=== PATIENT | female | born 1990 | race African-American/Black ===

== ENCOUNTER 2019-01-05 20:06 | Emergency (ER) | payer OTHER, MEDICAID ==
[~2019-01-05] VITALS: Ht 167.6 cm; Wt 90.7 kg
[2019-01-05 20:40] VITALS: BP 147/76
[2019-01-05] MEDS ORDERED: AMOXICILLIN 250 MG CAPSULE. PO ONE (21:30)
[2019-01-05] MEDS ORDERED: HYDROcodone/APAP 5/325MG 1 TAB TABLET PO ONE (21:30)
[2019-01-05] MEDS ORDERED: NAPROXEN 500 MG TABLET PO ONE (21:30)
[2019-01-05] MEDS ORDERED: AMOX500T PO (21:33)
[2019-01-05] MEDS ORDERED: DICL50TA2 PO (21:33)
--- NOTE | 2019-01-05 21:33 | PHYS DOC ---
Adult General Chief Complaint Chief Complaint: DENTAL PROBLEM HPI HPI Patient is a 28 year old female with no significant medical history who presents to the ED today complaining of moderate pain to the left lower gum that began a couple days ago but got worse today. Patient denies any fever or trismus. Denies any excessive bleeding or relieving factors to her pain. (NASRIN WINTERS APRN) Review of Systems Review of Systems Constitutional: Denies fever or chills [] HENT: Reports left lower gum dental pain. Denies nasal congestion or sore throat [] Musculoskeletal: Denies back pain or joint pain [] Integument: Denies rash or skin lesions [] Neurologic: Denies headache, focal weakness or sensory changes [] All other systems were reviewed and found to be within normal limits, except as documented in this note. (NASRIN WINTERS APRN) Current Medications Current Medications Current Medications Medications (Trade) Dose Ordered Sig/Le[place]on Start Time Stop Time Status Last Admin Dose Admin Acetaminophen/ Hydrocodone Bitart (Lortab 5/325) 2 tab 1X ONCE 01/05/19 21:30 01/05/19 21:31 DC 01/05/19 21:42 2 TAB Amoxicillin (Amoxil) 1,000 mg 1X ONCE 01/05/19 21:30 01/05/19 21:31 DC 01/05/19 21:42 1,000 MG Naproxen (Naprosyn) 500 mg 1X ONCE 01/05/19 21:30 01/05/19 21:31 DC 01/05/19 21:42 500 MG (JEWEL SAGASTUME DO) Allergies Allergies Allergies Coded Allergies Type Severity Reaction Last Updated Verified No Known Drug Allergies 01/05/19 No (JEWEL SAGASTUME DO) Physical Exam Physical Exam Constitutional: Well developed, well nourished, no acute distress, non-toxic appearance. [] HENT: Normocephalic, atraumatic, bilateral external ears normal, oropharynx moist, no oral exudates, nose normal. [] Tooth #20 and 19 and decayed, tooth #20 is broken. Poor dentition throughout. No dental abscess. Skin: Warm, dry, no erythema, no rash. [] Back: No tenderness, no CVA tenderness. [] Extremities: No tenderness, no cyanosis, no clubbing, ROM intact, no edema. [] Neurologic: Alert and oriented X 3, normal motor function, normal sensory function, no focal deficits noted. [] Psychologic: Affect normal, judgement normal, mood normal. [] (NASRIN WINTERS APRN) Current Patient Data Vital Signs Vital Signs Date Time Temp Pulse Resp B/P (MAP) Pulse Ox O2 Delivery O2 Flow Rate FiO2 01/05/19 20:40 98.2 71 16 147/76 (99) 96 Room Air 98.2 (JEWEL SAGASTUME DO) EKG EKG [] (NASRIN WINTERS APRN) Radiology/Procedures Radiology/Procedures [] (NASRIN WINTERS APRN) Course & Med Decision Making Course & Med Decision Making Pertinent Labs and Imaging studies reviewed. (See chart for details) This is a 28-year-old female patient presenting to the ED today with dental pain, discharged on amoxicillin and diclofenac. Follow-up with her dentist in 1- 2 weeks. (NASRIN WINTERS APRN) Dragon Disclaimer Dragon Disclaimer This electronic medical record was generated, in whole or in part, using a voice recognition dictation system. (NASRIN WINTERS APRN) Departure Departure Impression: Primary Impression: Dentalgia Additional Impression: Dental caries Disposition: HOME, SELF-CARE Condition: STABLE Referrals: UNKNOWN PCP NAME (PCP) follow up with your dentist in one week Patient Instructions: Dental Caries, Dental Pain, [id number] Additional Instructions: You were eluated in the emergency room for dental pain, we put you on antibiotics and pain medicines, take them as prescribed. Follow-up with your own dentist as soon as you can. Scripts Diclofenac Potassium (DICLOFENAC POTASSIUM) 50 Mg Tablet 1 TAB PO BID, #20 TAB 0 Refills Prov: NASRIN WINTERS APRN 01/05/19 Amoxicillin (AMOXICILLIN) 500 Mg Tablet 1 TAB PO BID, #20 TAB Prov: NASRIN WINTERS APRN 01/05/19 Attending Signature Attending Signature I have reviewed the PA/LOAD BUILDER's note and plan of care. I was available for consultation as needed during the patient's visit in the emergency department. I agree with the clinical impression, plan, and disposition. (JEWEL SAGASTUME DO) Problem Qualifiers NASRIN WINTERS APRN Jan 05, 2019 21:33 JEWEL SAGASTUME DO Jan 07, 2019 04:00
== END 2019-01-05 21:46 | disposition home or self-care (01) ==
LOC: ER 20:06
DX: K02.9 Dental caries, unspecified (principal)
CPT/HCPCS: 99284